=== PATIENT | male | born 1990 | race Caucasian/White ===

== ENCOUNTER 2019-12-09 16:14 | Emergency (ER) | payer MEDICAID ==
[~2019-12-09] VITALS: Ht 188 cm; Wt 95.0 kg
[2019-12-09 16:52] VITALS: BP 142/74
[2019-12-09 17:20] LABS: BASOPHILS # (AUTO) 0.02 x10^3/uL (0-0.1); BASOPHILS % (AUTO) 0 % (0-1); EOSINOPHILS # (AUTO) 0.02 x10^3/uL (0-0.4); EOSINOPHILS % (AUTO) 0 % (1-7); LYMPHOCYTES % (AUTO) 6 % (22-44); MD NO; MEAN CORPUSCULAR HEMOGLOBIN 29.4 pg (27.5-34.5); MEAN CORPUSCULAR HGB CONC 33.8 g/dL (33.2-36.2); MEAN CORPUSCULAR VOLUME 86.9 fL (81-97); MONOCYTES # (AUTO) 0.64 x10^3/uL (0.2-0.8); MONOCYTES % (AUTO) 5 % (2-9); NEUTROPHILS # (AUTO) 10.49 x10^3/uL (1.8-6.8); NEUTROPHILS % (AUTO) 88 % (42-75); PLATELET COUNT 305 x10^3/uL (130-400); RED BLOOD COUNT 4.68 x10^6/uL (4.38-5.82); RED CELL DISTRIBUTION WIDTH 12.5 % (9.4-14.8)
[2019-12-09 17:30] LABS: ALBUMIN 3.7 g/dL (3.4-5.0); ANION GAP 5 mmol/L (5-15); CALCIUM 8.8 mg/dL (8.5-10.1); CHLORIDE 107 mmol/L (98-107); CREATININE 0.95 mg/dL (0.7-1.3)
--- NOTE | 2019-12-09 17:50 | NUR ---
NO COMPLAINTS AT THIS TIME, RESTING WHILE AWAITING RE-EVAL
== END 2019-12-09 18:54 | disposition home or self-care (01) ==
LOC: ED 17:27
DX: R55 Syncope and collapse (principal); E87.6 Hypokalemia
CPT/HCPCS: 36415; 80048; 82040; 85025; 93005; 99284

== ENCOUNTER 2021-02-22 07:42 | Emergency (ER) | payer MEDICAID, OTHER ==
[~2021-02-22] VITALS: Ht 188 cm; Wt 93.1 kg
--- NOTE | 2021-02-22 07:54 | NUR ---
ASSUMED CARE OF PT. PT HERE D/T C/O SORE THROAT X1-2 DAYS. "THOUGHT IT WAS IMPROVING" DENIES FEVER, SOB. DR. GUERRERO PRESENT.
[2021-02-22] MEDS ORDERED: BICILLIN-LA 1,200,000 UNITS/2 ML IM ONE (09:30)
[2021-02-22 09:35] VITALS: BP 121/82
--- NOTE | 2021-02-22 09:35 | NUR ---
PT MEDICATED PER MAR. DENIES NEEDS.
--- NOTE | 2021-02-22 10:48 | NUR ---
Patient given discharge instructions and they have confirmed that they understand the instructions. Patient ambulatory with steady gait.
== END 2021-02-22 10:49 | disposition home or self-care (01) ==
LOC: ED 08:58
DX: J02.0 Streptococcal pharyngitis (principal); F17.200 Nicotine dependence, unspecified, uncomplicated
CPT/HCPCS: 87880; 96372; 99283; J0561